=== PATIENT | female | born 1990 | race Caucasian/White ===

== ENCOUNTER 2022-04-23 13:52 | Emergency (ER) | payer OTHER, SELFPAY ==
--- NOTE | ~2022-04-23 | CT_ITS ---
EXAMINATION: CT THORACIC SPINE WITHOUT CONTRAST CT LUMBAR SPINE WITHOUT CONTRAST CLINICAL INFORMATION: Fall. Mid back pain. Lumbar pain. History of lumbar surgery. COMPARISON: None available. TECHNIQUE: Multidetector helical imaging of the lumbar spine was obtained without intravenous contrast. Multiple axial reformats and coronal/sagittal reconstructions were created the technologist workstation for review. This CT examination was performed using dose optimization techniques as appropriate, variously including the following: *Automated exposure control. *Adjustment of mA and/or kV according to patient size (this includes techniques or standardized protocols for targeted exams where dose is matched to indication/reason for exam; i.e. extremities or head). *Use of iterative reconstruction technique. DLP: 685 mGy-cm FINDINGS: Instrumented posterior fusion of T11-L4 with bilateral paired interpedicular screws at T11, T12, L3, and L4. No evidence of hardware fracture or loosening. Thoracic Spine: Normal anatomic alignment. No evidence of acute fracture or traumatic subluxation. Minimal loss of superior endplate height at T11 and T12 without evidence of acute fracture lines. Otherwise, the vertebral body heights are maintained. Mild multilevel degenerative disc disease throughout the thoracic spine. No suspicious lytic or sclerotic osseous lesions. No significant abnormalities of the paraspinal musculature. Limited evaluation of the intrathoracic structures without significant abnormalities. The descending thoracic aorta is of normal contour and caliber. AXIAL SPINAL LEVELS: No overt annular contour abnormalities. There is mild multilevel facet joint arthropathy. There is no demonstrated neural foraminal or spinal canal stenosis. Lumbar Spine: Mild right convex curvature of the lumbar spine. Otherwise, normal anatomic alignment. No evidence of acute fracture or traumatic subluxation. Minimal loss of superior endplate height at L1-L2 and L2-L3 suggestive of sequela of prior fractures. No acute fracture lines or surrounding edema demonstrated. There is mild retropulsion of the superior posterior body hall of L1 on L2 (0.25 cm). Otherwise, the vertebral body heights are well-maintained. Moderate degenerative disc disease at T12-L1 and L1-L2. Mild degenerative disc disease at all additional lumbar levels. The T11-L4 posterior elements are fused. No suspicious lytic or sclerotic osseous lesions. No significant abnormalities of the paraspinal musculature. Changes of prior cholecystectomy. There appears to be a nonobstructive 0.2 cm stone associated with the left kidney. Otherwise, limited evaluation of the intra-abdominal structures without additional significant abnormalities. The abdominal aorta is of normal contour and caliber. AXIAL SPINAL LEVELS: T12-L1: Mild diffuse disc bulge and mild retropulsion of the posterior body wall of L1. There is mild hypertrophic change of fused facet joints. There is no demonstrated neural foraminal or spinal canal stenosis. L1-L2: Mild diffuse disc bulge and mild retropulsion of the posterior body wall of L1. There is moderate hypertrophic change of fused facet joints. There is no demonstrated neural foraminal or spinal canal stenosis. L2-L3: Normal annular contour. There is moderate hypertrophic change of fused facet joint. There is no neural foraminal stenosis. There is no demonstrated spinal canal stenosis. L3-L4: Shallow diffuse disc bulge. There is moderate hypertrophic change of fused facet joint. There is no neural foraminal stenosis. There is no spinal canal stenosis. L4-L5: Mild diffuse disc bulge. There is mild bilateral facet joint arthropathy. There is mild bilateral neural foraminal stenosis. There is no demonstrated spinal canal stenosis. L5-S1: Mild diffuse disc bulge. There is mild to moderate bilateral facet joint arthropathy. There is mild bilateral neural foraminal stenosis. There is no demonstrated spinal canal stenosis. CT/CT thoracic spine wo IV con IMPRESSION: 1. Instrumented posterior fusion of T11-L4. No evidence of hardware fracture or loosening. 2. Minimal loss of superior endplate height of T11, T12, L1, and L2 suggestive of sequela of remote trauma. No evidence of acute fracture or traumatic subluxation of the thoracolumbar spine. 3. Mild multilevel degenerative spondyloarthropathy of the thoracolumbar spine as described in detail above. Most notably, there are mild neural foraminal stenoses at L4-L5 and L5-S1. No demonstrated spinal canal stenosis. 4. Nonobstructive left-sided nephrolithiasis.
[2022-04-23 15:47] VITALS: BP 129/65; PULSE 75; RESP 18; TEMP 36.2; O2SAT 100; BMI 25.5
--- NOTE | 2022-04-23 15:49 | ED_ITS ---
HPI - General Adult General Source: patient <Dora Adams NP - Last Filed: 04/24/22 02:14> Mode of arrival: ambulatory <MINO Good Last Filed: 04/24/22 02:14> Limitations: no limitations <Dora Adams NP - Last Filed: 04/24/22 02:14> History of Present Illness HPI narrative: 32-year-old female presents for evaluation after a fall injury 2 days ago. Patient was walking down the stairs, carrying multiple items, slipped, landed on her bottom and went down approximately 5 steps. She does not report any symptoms consistent with cauda equina, but states to have coccyx pain and lower back pain. She does not report loss of sensation, loss of balance, weakness, or loss of continence of bowel and bladder. She did not report any prodromal events prior to her fall. <Dora Admas NP - Last Filed: 04/24/22 02:14> Onset (ago): day(s) (2) <Dora Adams NP - Last Filed: 04/24/22 02:14> Location: back <Dora Adams NP - Last Filed: 04/24/22 02:14> Severity: moderate <MINO Good Last Filed: 04/24/22 02:14> Severity scale (1-10): 6 <Dora Adams NP - Last Filed: 04/24/22 02:14> Quality: aching <Dora Adams NP - Last Filed: 04/24/22 02:14> Pain Consistency: constant <MINO Good Last Filed: 04/24/22 02:14> Relieving factors: none <MINO Good Last Filed: 04/24/22 02:14> Exacerbating factors: movement <Dora Adams NP - Last Filed: 04/24/22 02:14> Associated symptoms: denies other symptoms <Dora Adams NP - Last Filed: 04/24/22 02:14> Treatments prior to arrival: none <MINO Good Last Filed: 04/24/22 02:14> Related Data Home medications: Previous Rx's Medication Instructions Recorded cyclobenzaprine 10 mg tablet 10 mg PO TID PRN muscle spasm #20 04/23/22 tabs <DELMIS Villeda - Last Filed: 04/27/22 20:49> Allergies/adverse reactions: Allergies Allergy/AdvReac Type Severity Reaction Status Date / Time No Known Allergies Allergy Verified 04/23/22 15:51 <DELMIS Villeda - Last Filed: 04/27/22 20:49> Review of Systems Review of Systems: Constitutional: No Fever, No Chills Cardiovascular: No Chest Pain, No SOB Respiratory: No Cough, No Dyspnea Gastrointestinal: No Nausea, No Vomiting, No Diarrhea, No abdominal Pain Genitourinary: No Dysuria, No Hematuria, no bowel or bladder incontinence Musculoskeletal: positive lower back pain, No Myalgias, No Joint Swelling Skin: No Skin lacerations, No rash Neuro: No Weakness, No Numbness, No Paresthesias, No Loss of Consciousness, No Dizziness, No Headache <Dora Adams NP - Last Filed: 04/24/22 02:14> Yes all other systems are reviewed and are negative <Dora Adams NP - Last Filed: 04/24/22 02:14> [facility] Past Medical History Attestation statement: The following information was validated with the patient. <Dora Adams NP - Last Filed: 04/24/22 02:14> Source: old records reviewed <Dora Adams NP - Last Filed: 04/24/22 02:14> Social History Social History: Social History Advance Directives: No Advance Directives Information Provided: No <DELMIS Villeda - Last Filed: 04/27/22 20:49> Physical Exam ED Vital Signs: Vital Signs - 24 hr 04/23/22 15:47 Temperature 97.1 F Pulse Rate 75 Respiratory Rate 18 Blood Pressure 129/65 Pulse Oximetry 100 Oxygen Delivery Method Room Air BMI result Body Mass Index 25.5 <DELMIS Villeda - Last Filed: 04/27/22 20:49> Vital Signs - 24 hr 04/23/22 15:47 Temperature 97.1 F Pulse Rate 75 Respiratory Rate 18 Blood Pressure 129/65 Pulse Oximetry 100 Oxygen Delivery Method Room Air BMI result Body Mass Index 25.5 <Dora Adams NP - Last Filed: 04/24/22 02:14> Appearance: Alert. Oriented X3. Mild distress. Eyes: Pupils equal, round and reactive to light. ENT: Pharynx normal. Neck: Normal inspection. Neck supple. No vertebral tenderness or step-offs. CVS: Normal heart rate and rhythm. Pulses normal. Respiratory: No respiratory distress. Breath sounds normal. Abdomen: Soft and nontender. Skin: Skin warm and dry. Normal skin color. Normal skin turgor. Extremities: No lower extremity edema. Moves all extremities against resistance. Strength 5/5. Brisk capillary refill in equal pulses. Bilateral latissimus Dorsi spasming noted. Neuro: No motor deficit. No sensory deficit. Cranial nerves 2-12 intact <Dora Adams NP - Last Filed: 04/24/22 02:14> Course Course Course Narrative: 32-year-old female with past medical history of back surgeries is here today for back pain. Patient states that she fell last night slipped on the water walking down the stairs from about 4 steps down falling on the concrete on her lower back. Patient states that she had back surgeries about 6 years ago from traumatic fall onto a rock in the river and and up with screws in her upper back and in her lumbar back. Tingling to bilateral lower extremities. Denies urinary or fecal incontinence. Will do CT scan of sacrum and lumbar. Patient is hemodynamically stable to go for CT scan and wait in the waiting room. <Chanelle Moreno [employer] REPA[employer]-BC - Last Filed: 04/27/22 20:49> 32-year-old female with past medical history of back surgeries is here today for back pain. Patient states that she fell last night slipped on the water walking down the stairs from about 4 steps down falling on the concrete on her lower back. Patient states that she had back surgeries about 6 years ago from traumatic fall [place] rock in the river and and up with screws in her upper back and in her lumbar back. Tingling to bilateral lower extremities. Denies urinary or fecal incontinence. Will do CT scan of sacrum and lumbar. Patient is hemodynamically stable to go for CT scan and wait in the waiting room. 32-year-old female presents for injury sustained from a fall. CT scan of spine pending. Physical exam is unremarkable, no indication of cauda equina. 21:40 CT scan negative for acute findings, incidental findings noted that were discussed with the patient during discharge instructions with RN. Plan of care is for cyclobenzaprine, Tylenol, Motrin, and follow-up with primary care physician. Patient verbalized understanding of and agrees to plan of care discharge home. Verbalized understanding of signs symptoms indicating need for emergent intervention. <Dora Adams NP - Last Filed: 04/24/22 02:14> Medications Administered Discontinued Medications Generic Name Dose Route Start Last Admin Trade Name Freq PRN Reason Stop Dose Admin Acetaminophen 650 mg 04/23/22 20:56 04/23/22 21:10 Acetaminophen 325 Mg Tablet PO 04/23/22 20:57 650 mg ONCE ONE Administration Cyclobenzaprine HCl 10 mg 04/23/22 20:56 04/23/22 21:09 Cyclobenzaprine Hcl 10 Mg Tablet PO 04/23/22 20:57 10 mg ONCE ONE Administration <DESIREE Villeda-BC - Last Filed: 04/27/22 20:49> Medications Administered Discontinued Medications Generic Name Dose Route Start Last Admin Trade Name Freq PRN Reason Stop Dose Admin Acetaminophen 650 mg 04/23/22 20:56 04/23/22 21:10 Acetaminophen 325 Mg Tablet PO 04/23/22 20:57 650 mg ONCE ONE Administration Cyclobenzaprine HCl 10 mg 04/23/22 20:56 04/23/22 21:09 Cyclobenzaprine Hcl 10 Mg Tablet PO 04/23/22 20:57 10 mg ONCE ONE Administration <Dora Adams NP - Last Filed: 04/24/22 02:14> Medical Decision Making Differential Diagnosis Differential Diagnoses: The differential diagnosis associated with the presentation includes <Dora Adams NP - Last Filed: 04/24/22 02:14> Compression fracture, muscle spasm, contusion <Dora Adams NP - Last Filed: 04/24/22 02:14> Admission/Observation Consideration of admission/observation: Escalation of care including admission/observation considered <Dora Adams NP - Last Filed: 01/06/23 02:14> If patient has any critical findings on CT scan, will transfer to Trauma Center <Dora Adams NP - Last Filed: 04/24/22 02:14> Lab Data MDM Lab Attestation statement: I reviewed the patient's lab results. <Dora Adams NP - Last Filed: 04/24/22 02:14> Labs: Lab Results 04/23/22 04/23/22 Range/Units 16:17 16:19 Beta HCG, Quant < 2 mIU/mL Urine Test NEGATIVE (NEGATIVE) <ERNIE Villeda - Last Filed: 04/27/22 20:49> Lab Results 04/23/22 04/23/22 Range/Units 16:17 16:19 Beta HCG, Quant < 2 mIU/mL Urine Test NEGATIVE (NEGATIVE) <Dora Adams NP - Last Filed: 04/24/22 02:14> Independent Interpretation I performed an independent interpretation of an: CT Scan <Dora Adams NP - Last Filed: 04/24/22 02:14> Radiology Impression Discussion of test interpretation with radiology: I have reviewed the radiologist's reading. <Dora Adams NP - Last Filed: 04/24/22 02:14> Radiologist Impression: FINDINGS: Instrumented posterior fusion of T11-L4 with bilateral paired interpedicular screws at T11, T12, L3, and L4. No evidence of hardware fracture or loosening. Thoracic Spine: Normal anatomic alignment. No evidence of acute fracture or traumatic subluxation. Minimal loss of superior endplate height at T11 and T12 without evidence of acute fracture lines. Otherwise, the vertebral body heights are maintained. Mild multilevel degenerative disc disease throughout the thoracic spine. No suspicious lytic or sclerotic osseous lesions. No significant abnormalities of the paraspinal musculature. Limited evaluation of the intrathoracic structures without significant abnormalities. The descending thoracic aorta is of normal contour and caliber. AXIAL SPINAL LEVELS: No overt annular contour abnormalities. There is mild multilevel facet joint arthropathy. There is no demonstrated neural foraminal or spinal canal stenosis. Lumbar Spine: Mild right convex curvature of the lumbar spine. Otherwise, normal anatomic alignment. No evidence of acute fracture or traumatic subluxation. Minimal loss of superior endplate height at L1-L2 and L2-L3 suggestive of sequela of prior fractures. No acute fracture lines or surrounding edema demonstrated. There is mild retropulsion of the superior posterior body hall of L1 on L2 (0.25 cm). Otherwise, the vertebral body heights are well-maintained. Moderate degenerative disc disease at T12-L1 and L1-L2. Mild degenerative disc disease at all additional lumbar levels. The T11-L4 posterior elements are fused. No suspicious lytic or sclerotic osseous lesions. No significant abnormalities of the paraspinal musculature. Changes of prior cholecystectomy. There appears to be a nonobstructive 0.2 cm stone associated with the left kidney. Otherwise, limited evaluation of the intra-abdominal structures without additional significant abnormalities. The abdominal aorta is of normal contour and caliber. AXIAL SPINAL LEVELS: T12-L1: Mild diffuse disc bulge and mild retropulsion of the posterior body wall of L1. There is mild hypertrophic change of fused facet joints. There is no demonstrated neural foraminal or spinal canal stenosis. L1-L2: Mild diffuse disc bulge and mild retropulsion of the posterior body wall of L1. There is moderate hypertrophic change of fused facet joints. There is no demonstrated neural foraminal or spinal canal stenosis. L2-L3: Normal annular contour. There is moderate hypertrophic change of fused facet joint. There is no neural foraminal stenosis. There is no demonstrated spinal canal stenosis. L3-L4: Shallow diffuse disc bulge. There is moderate hypertrophic change of fused facet joint. There is no neural foraminal stenosis. There is no spinal canal stenosis. L4-L5: Mild diffuse disc bulge.? There is mild bilateral facet joint arthropathy. There is mild bilateral neural foraminal stenosis. There is no demonstrated spinal canal stenosis. L5-S1: Mild diffuse disc bulge. There is mild to moderate bilateral facet joint arthropathy. There is mild bilateral neural foraminal stenosis. There is no demonstrated spinal canal stenosis. CT/CT lumbar spine wo IV con IMPRESSION: 1.? Instrumented posterior fusion of T11-L4. No evidence of hardware fracture or loosening. 2.? Minimal loss of superior endplate height of T11, T12, L1, and L2 suggestive of sequela of remote trauma. No evidence of acute fracture or traumatic subluxation of the thoracolumbar spine. 3.? Mild multilevel degenerative spondyloarthropathy of the thoracolumbar spine as described in detail above. Most notably, there are mild neural foraminal stenoses at L4-L5 and L5-S1. No demonstrated spinal canal stenosis. 4.? Nonobstructive left-sided nephrolithiasis. ? <Dora Adams NP - Last Filed: 04/24/22 02:14> External Record Review External record reviewed: Outpatient record <Dora Adams NP - Last Filed: 04/24/22 02:14> Prescription Management I considered prescription management with: Pain Medication <Dora Adams NP - Last Filed: 04/24/22 02:14> Cyclobenzaprine ordered for muscle spasm <Dora Adams NP - Last Filed: 04/24/22 02:14> Discharge Plan Discharge Clinical Impression: Fall, Back pain <DELMIS Villeda - Last Filed: 04/27/22 20:49> Patient Disposition: Home, Self-Care <DELMIS Villeda - Last Filed: 04/27/22 20:49> Instructions: Acute Low Back Pain (ED) <DELMIS Villeda - Last Filed: 04/27/22 20:49> Additional Instructions: You were evaluated for injury sustained from a fall. CT scan of spine is negative for acute findings requiring emergent intervention. Incidental findings are degenerative spondyloarthropathy and mild neural foraminal stenosis at L4-L5 and L5-S1. Please follow-up the primary care physician for this finding. You do have a nonobstructive left-sided kidney stone without pyelonephritis. Please follow-up with primary care physician I prescribed cyclobenzaprine, this medication is a muscle relaxer, this medication can delay reaction time, increased drowsiness, and increased risk for fall. Do not drive or operate machinery while taking this medication. Alternate Tylenol 650 mg every 6 hours and Motrin 600 mg every 6 hours as needed for pain management. Do not take Motrin at the same time you take cyclobenzaprine. Write down what time you take these medications to prevent accidental overdose. Your injuries may take several weeks to heal. You may consider following up with the primary care physician for physical therapy referral. Thank you for choosing this emergency department for evaluation. Please follow-up with primary care physician as needed. Return to the emergency department for any new, concerning, or worsening symptoms. <DELMIS Villeda - Last Filed: 04/27/22 20:49> Prescriptions: New cyclobenzaprine 10 mg tablet 10 mg PO TID PRN (Reason: muscle spasm) Qty: 20 0RF <DELMIS Villeda - Last Filed: 04/27/22 20:49> Referrals: Physician,Unknown J [Primary Care Provider] - 5 days (Lower back pain from fall) <DELMIS Villeda - Last Filed: 04/27/22 20:49> Stand Alone Forms: Work/School Release <DELMIS Villeda - Last Filed: 04/27/22 20:49> Interventions: ED Discharge Assessment Last Done: 04/23/22 22:29 <DELMIS Villeda - Last Filed: 04/27/22 20:49> Discharge Date/Time: 04/23/22 22:30 <DELMIS Villeda - Last Filed: 04/27/22 20:49>
[2022-04-23 16:47] LABS: UPreg QC Valid YES; Urine Pregnancy NEGATIVE (NEGATIVE)
[2022-04-23 17:07] LABS: HCG Quantitative < 2 mIU/mL
[2022-04-23] MEDS: Cyclobenzaprine HCl 10 MG TABLET PO (21:09)
[2022-04-23] MEDS: Acetaminophen 325 MG TABLET 650 MG PO (21:10)
== END 2022-04-23 22:30 | disposition home or self-care (01) ==
PROVIDERS: Emergency Provider Emergency Medicine
DX: M54.6 Pain in thoracic spine (principal); M54.50 Low back pain, unspecified; Z79.899 Other long term (current) drug therapy
CPT/HCPCS: 36415; 72128; 72131; 81025; 84702; 99283; 99284